=== PATIENT | female | born 1970 | race Caucasian/White ===

== ENCOUNTER 2024-03-01 05:15 | Emergency (ER) | payer OTHER, SELFPAY ==
[2024-03-01 05:58] LABS: Urine Albumin Negative (Neg - Trace); Urine Bilirubin Negative (Negative); Urine Character Clear (Clear); Urine Color Yellow; Urine Glucose Negative (Negative); Urine Ketone Negative (Negative); Urine Leukocyte Negative (Negative); Urine Nitrite Negative (Negative); Urine Occult Blood 1+ (Negative); Urine Urobilinogen Negative (Neg - 1+); Urine pH 6.5 (5.0-9.0)
[2024-03-01 06:08] LABS: Urine Squamous Cell 16-20 /LPF (Few)
[2024-03-01 06:10] VITALS: BP 123/82
[2024-03-01 06:10] LABS: Urine Bacteria Few (Negative); Urine White Cell 0-2 /HPF (0-5)
[2024-03-01 06:22] LABS: Amphetamines Negative (Negative); Barbiturates Negative (Negative); Benzodiazepines Negative (Negative); Buprenorphine Negative (Negative); Cocaine Negative (Negative); Marijuana Positive (Negative); Methadone Negative (Negative); Methamphetamines Negative (Negative); Opiates Negative (Negative); Phencyclidine Negative (Negative); Tricyclic Antidepressants Negative (Negative)
[2024-03-01 06:30] LABS: Fentanyl, Urine Negative (Negative)
[2024-03-01 06:50] LABS: ALT (SGPT) 22 U/L (0-35); AST (SGOT) 23 U/L (14-36); Albumin 4.8 g/dl (3.5-5.0); Alkaline Phosphatase 49 U/L (38-126); Blood Urea Nitrogen 20 mg/dl (7-17); Calcium 10.2 mg/dl (8.4-10.2); Carbon Dioxide 24 mmol/L (22-30); Chloride 103 mmol/L (98-107); Glucose 99 mg/dl (70-99); Potassium 2.8 mmol/L (3.5-5.1); Sodium 141 mmol/L (135-145); Total Bilirubin 0.4 mg/dl (0.2-1.3); eGFR > 60.00
[2024-03-01 06:53] LABS: % Basophils 0.6 % (0-2); % Immature Granulocytes 0.4 % (0-0.5); % Lymphocytes 17.8 % (20.5-51.1); % Monocytes 5.7 % (1.7-9.3); % Neutrophils 74.5 % (42.2-75.2); Absolute Basophils 0.1 10^3/uL (0-0.2); Absolute Eosinophils 0.1 10^3/uL (0-0.7); Absolute Lymphocytes 1.5 10^3/uL (1.2-3.4); Absolute Monocytes 0.5 10^3/uL (0.1-0.6); Absolute Neutrophils 6.2 10^3/uL (1.4-6.5); Hematocrit 39.7 % (37.0-47.0); Hemoglobin 14.6 g/dL (12.0-16.0); Mean Corp Hgb Conc. 36.8 g/dL (33.0-37.0); Mean Corpuscular Hgb 33.7 pg (27.0-31.0); Mean Corpuscular Volume 91.7 fL (81.0-99.0); Mean Platelet Volume 9.4 fL (7.4-10.4); Nucleated Red Blood Cells % 0 %; Platelet Count 320 10^3/uL (130-400); Red Blood Cell Count 4.33 10^6/uL (4.20-5.40); Red Cell Dist. Width 13.6 % (11.5-14.5); White Blood Cell Count 8.3 10^3/uL (4.8-10.8)
[2024-03-01 07:00] VITALS: BP 123/73
--- NOTE | 2024-03-01 07:18 | ED.GENMED ---
History of Present Illness
General
Chief Complaint: Anxiety
Source: patient and family
Time Seen by Provider: 03/01/24 06:57
History of Present Illness
History of Present Illness:
53yoF with a history of lupus, fibromyalgia, and migraines presenting via EMS for evaluation of anxiety. Patient reports being under a lot of stress recently due to work and family stressors. She was having trouble sleeping last night. Around 4am,
she started to feel palpitations like her heart was racing. She then stood up and became dizzy. She went upstairs to alert her who called EMS. Patient was hyperventilating on police and EMS arrival. She had 1 episode of vomiting on arrival.
Patient is currently feeling improved although continues to report severe anxiety. She reports a history of anxiety although has never been on any medications previously. She denies any suicidal ideations.
Past History
Past History
ED Past Medical History: Fibromyalgia and Other (Migraine headaches)
Social History
Tobacco: Non-smoker
Alcohol: Occasional
Drug: None
Personal:
Phy Exam
General Physical Exam
General Presentation: well appearing
General Skin: warm and dry
General Mental: alert and anxious
ENT Exam
ENT Exam: normocephalic
Cardiovascular Exam
Cardiovascular Exam: regular rate/rhythm and no murmur
Pulmonary Exam
Pulmonary Exam: lungs clear, no respiratory distress, no crackles and no wheezing
January Coma Scale
Eye Opening: Spontaneous
Verbal Response: Oriented
Motor Response: Obeys Commands
GCS Total Score: 15
Psychiatric Exam
Psychiatric Exam: anxious and other (Tearful)
Course
Orders/Labs/Results
Orders:
Orders
03/01/24 05:44
Fentanyl, Urine Urgent
Urinalysis Reflex To Culture Urgent
Date Specimen was Collected: 03/01/24
Time Specimen was Collected: 05:43
Urine Drug Abuse Screen Urgent
Date Specimen was Collected: 03/01/24
Time Specimen was Collected: 05:43
Urine Microscopic Reflex Cult Urgent
03/01/24 06:28
Complete Blood Count/With Diff Urgent
Comprehensive Metabolic Panel Urgent
Free T4 Urgent
Magnesium Urgent
Comment: ADD ON
Thyroid profile [TSH Reflex To Free T4] Urgent
03/01/24 06:58
Add On- LAB Urgent
Tests Added?: magnesium
Electrocardiogram (*1) Urgent
Reason for Study: Other
Other Reason for Exam: hypokalemia
EKG- Treatment ONCE
Potassium Chloride [KCl] 40 meq PO NOW STA
03/01/24 07:17
Crisis Consult Urgent
Reason for Consult: Eval, anxiety
0.9% Sodium Chloride 500 ml [Nss] 500 ml IV BOLUS
Lorazepam [Ativan] 1 mg IV NOW STA
Ondansetron Injectable [Zofran] 4 mg IV NOW STA
Potassium Chloride [KCl] 20 meq 0.9% Sodium Chloride 150 ml [Nss] 150 ml IV NOW
03/01/24 07:39
Troponin I Urgent
Abnormal Lab Results
03/01/24 03/01/24
05:44 06:28
MCH 33.7 H pg
(27.0-31.0)
Lymphocytes % 17.8 L %
(20.5-51.1)
Potassium 2.8 L mmol/L
(3.5-5.1)
BUN 20 H mg/dl
(7-17)
TSH (Reflex) 0.44 L uIU/ml
(0.47-4.68)
Ur Occult Blood Reflex 1+ A
(Negative)
Urine RBC 3-6 A /HPF
(0-2)
Urine Bacteria (Reflex) Few A
(Negative)
Ur Oxycodone Screen Positive H
(Negative)
U Marijuana (THC) Screen Positive H
(Negative)
03/01/24 06:28
03/01/24 06:28
Vital Signs
Initial and Last Documented VS:
Initial Vital Signs
Temp Pulse Resp Pulse Ox
97.9 F 103 28 98
03/01/24 05:22 03/01/24 05:22 03/01/24 05:22 03/01/24 05:22
Last Documented Vital Signs
Temp Pulse Resp BP Pulse Ox
98.9 F 103 23 136/83 95
03/01/24 05:22 03/01/24 10:00 03/01/24 09:45 03/01/24 09:22 03/01/24 10:00
MDM/Problems Addressed
Differential Diagnosis Includes:
53yoF here with anxiety. She started with palpitations this morning and felt like her heart was racing. EMS was called. She was hyperventilating prehospital. She reports being under a lot of stress recently. She is anxious and tearful on exam. VSS.
Exam otherwise reassuring. Differential diagnosis includes but is not limited to: Anxiety, thyroid dysfunction, electrolyte abnormality, arrhythmia, less likely ACS
Initial ED plan: CBC, CMP, TSH, and UA obtained by nursing staff prior to initial exam. Potassium 2.8. She reports having a GI bug earlier in the week and had 1 episode of vomiting today. TSH is mildly low at 0.44 and free T4 is normal. Troponin,
magnesium, and EKG ordered. Will consult crisis. IV Zofran, Ativan, and fluid bolus for symptoms. IV and PO potassium replacement ordered.
*EKG
Interpreted by ED Provider?: Yes
EKG Intrepretation Date: 03/01/24
Heart Rate: 90
Rate: normal
Rhythm: sinus
[place]: normal axis
Interval: normal interval
QRS Pattern: normal QRS
Ischemia: non-specific ST changes
*Critical Care Note
Total Time (30-74mins, 75-104mins- exclusive of procedures): Not Applicable
Update Note
Update Note:
Magnesium normal. EKG shows NSR with nonspecific ST changes. Troponin within normal limits. Crisis was consulted. Plan is for outpatient follow-up for her anxiety and resources were provided. Patient requesting medications for the next few days
to get her through until she is able to follow-up. She was given a prescription for 6 tablets of Ativan. Advised f/u with PCP and she was instructed to have repeat blood work in 1 week to monitor her potassium. ED return precautions discussed.
She expressed understanding is agreeable to plan. She was discharged in stable condition.
ED Attending Note
-
Portions of this chart may have been created with voice recognition software.� Occasional wrong word or��sound alike� substitutions may have occurred due to the inherent limitations of voice recognition software.
Discharge Plan
Departure
Patient Disposition: Home (Routine Discharge)
Date of Disposition: 03/01/24
Time of Disposition: 10:03
Patient with high blood pressure during this ER visit?: No
Discharge Problem:
Anxiety, Hypokalemia
Instructions: Anxiety, Adult (DC), High-potassium diet
Prescriptions:
New
lorazepam [Ativan] 1 mg tablet
1 mg PO TID PRN (Reason: anxiety) Qty: 6 0RF
No Action
sumatriptan succinate 100 MG tablet
100 mg PO PRN PRN (Reason: migraines)
zolpidem 10 MG tablet
10 mg PO HSPRN PRN (Reason: insomnia)
topiramate 50 MG tablet
50 mg PO DAILY
magnesium Tablet
PO
tizanidine
Thc Gummies
PO HS
Referrals:
UNKNOWN - PT DOES,NOT KNOW [Unknown Provider] -
Activity Restrictions/Additional Instructions:
Take Ativan only as needed for severe anxiety. Increase potassium in your diet.
Please call your family doctor tomorrow to schedule a follow-up appointment. You should have repeat blood work in 1 week to monitor your potassium levels.
Return to the ER with any worsening symptoms or suicidal thoughts.
Interventions
Interventions:
*Risk Screen - Suicide Last Done: 03/01/24 05:22
*General Assessment Last Done: 03/01/24 05:22
*Neglect/Abuse Screening Last Done: 03/01/24 05:22
ED- Fall Risk Assessment Last Done: 03/01/24 05:22
*ED COVID-19 Vaccine History Last Done: 03/01/24 05:22
*Nursing Disposition Last Done: 03/01/24 10:25
ED-Psychological Assessment Last Done: 03/01/24 06:30
Discharge Date and Time
Discharge Date/Time: 03/01/24 10:25
Print Language: DANISH
[2024-03-01 07:19] LABS: TSH Reflex To Free T4 0.44 uIU/ml (0.47-4.68)
[2024-03-01] MEDS: ZOFRAN 4 MG IV (07:41)
[2024-03-01] MEDS: NSS 500 IV (07:41)
[2024-03-01] MEDS: ATIVAN 1 MG IV (07:42)
[2024-03-01 07:44] LABS: Magnesium 2.1 mg/dl (1.6-2.3)
[2024-03-01 07:49] LABS: Free T4 1.22 ng/dl (0.78-2.19)
[2024-03-01] MEDS: KCL 40 MEQ PO (08:00)
[2024-03-01] MEDS: KCL 160 MEQ IV (08:14)
[2024-03-01 08:21] LABS: Troponin I < 0.012 ng/ml
[2024-03-01 09:22] VITALS: BP 136/83
== END 2024-03-01 10:25 | disposition home or self-care (01) ==
LOC: EMR 05:15
PROVIDERS: Emergency Medicine; Physician Assistant; EMERGENCY PHYSICIAN Emergency Medicine; FAMILY PHYSICIAN Family Medicine
DX: F41.9 Anxiety disorder, unspecified (principal); E87.6 Hypokalemia; M79.7 Fibromyalgia; Z63.8 Other specified problems related to primary support group
CPT/HCPCS: 99283; 96374; 96375; 96361; 80053; 80306; 80307; 81003; 81015; 83735; 84439; 84443; 84484; 85025; 93005

== ENCOUNTER 2024-07-27 06:44 | Emergency (ER) | payer OTHER, SELFPAY ==
[2024-07-27 06:47] VITALS: BP 130/90
[2024-07-27] MEDS: ZOFRAN 4 MG IV (07:31)
[2024-07-27] MEDS: TORADOL 15 MG IV (07:31)
[2024-07-27] MEDS: NSS 500 IV (07:32)
[2024-07-27 07:44] LABS: Urine Albumin Negative (Neg - Trace); Urine Bilirubin Negative (Negative); Urine Character Clear (Clear); Urine Color Yellow; Urine Glucose Negative (Negative); Urine Ketone Negative (Negative); Urine Leukocyte Negative (Negative); Urine Nitrite Negative (Negative); Urine Occult Blood 1+ (Negative); Urine Urobilinogen Negative (Neg - 1+); Urine pH 6.5 (5.0-9.0)
[2024-07-27 07:50] LABS: Hematocrit 41.9 % (37.0-47.0); Hemoglobin 14.4 g/dL (12.0-16.0); Mean Corp Hgb Conc. 34.4 g/dL (33.0-37.0); Mean Corpuscular Hgb 32.6 pg (27.0-31.0); Mean Corpuscular Volume 94.8 fL (81.0-99.0); Mean Platelet Volume 8.8 fL (7.4-10.4); Platelet Count 315 10^3/uL (130-400); Red Blood Cell Count 4.42 10^6/uL (4.20-5.40); Red Cell Dist. Width 14.1 % (11.5-14.5); White Blood Cell Count 4.4 10^3/uL (4.8-10.8)
[2024-07-27 07:54] LABS: HCG, Serum Qualitative Screen Negative; Urine Bacteria Few (Negative); Urine Squamous Cell >30 /LPF (Few); Urine White Cell 0-2 /HPF (0-5)
[2024-07-27 07:56] LABS: Blood Urea Nitrogen 24 mg/dl (7-17); Calcium 9.9 mg/dl (8.4-10.2); Carbon Dioxide 34 mmol/L (22-30); Chloride 102 mmol/L (98-107); Glucose 81 mg/dl (70-99); Potassium 4.1 mmol/L (3.5-5.1); Sodium 141 mmol/L (135-145); eGFR > 60.00
[2024-07-27] MEDS: DILAUDID 0.5 MG IV (07:58)
--- NOTE | 2024-07-27 08:14 | ED.GENMED ---
History of Present Illness
General
Chief Complaint: Flank Pain
Source: patient
Exam Limitations: none
Time Seen by Provider: 07/27/24 07:22
Nursing documentation reviewed up to this point in time: agreed with
History of Present Illness
History of Present Illness:
Patient presents to ED secondary to worsening right flank pain along with dysuria and nausea sensation over the past 5 days. Denies fever or chills. Denies inability to urinate. Denies vomiting. Denies trauma. Patient states that her symptoms
are similar to previous episodes secondary to kidney stones, with last episode approximately 10 years ago.
Past History
Past History
ED Past Medical History: Fibromyalgia and Other (Migraine headaches)
Social History
Tobacco: Non-smoker
Alcohol: Occasional
Drug: None
Personal:
Review of Systems
Review of Systems
Allergies reviewed?: Yes
All Other Systems: ROS reviewed and negative except as documented in HPI and ROS
Constitutional: Reports no symptoms; Denies fever
ABD/GI: Reports nausea; Denies vomiting
: Reports dysuria and flank pain
Musculoskeletal: Reports no symptoms
Skin: Reports no symptoms
Neurological: Reports no symptoms
Phy Exam
Physical Exam
Physical Exam:
Physical Exam
General: mild painful distress, not acutely ill. afebrile
Head: nc/at. eomi
Neck: supple. normal range of motion.
Abdomen: normal bowel sounds. not tender.
Neuro: alert and oriented x 3. no focal neurological deficits
Skin: no rash
Psychiatric: well kept. interactive and cooperative
Extremities: no edema. no calf tenderness.
Course
Orders/Labs/Results
Orders:
Orders
07/27/24 07:27
CT Abd/pel Without Iv Or Oral Urgent
Comment:
Reason For Exam: right flank pain w hx kidney stone
Ketorolac [Toradol] 15 mg IV NOW STA
Ondansetron Injectable [Zofran] 4 mg IV NOW STA
Test Result ONCE
07/27/24 07:28
0.9% Sodium Chloride 500 ml [Nss] 500 ml IV BOLUS
07/27/24 07:36
Basic Metabolic Panel Urgent
Complete Blood Count/No Diff Urgent
HCG, Serum Qualitative Screen Urgent
Urinalysis Reflex To Culture Urgent
Date Specimen was Collected: 07/27/24
Time Specimen was Collected: 07:29
Urine Microscopic Reflex Cult Urgent
Urine Culture Urgent
SUSAN Source: U
Specimen Description:
Date Specimen was Collected: 07/27/24
Time Specimen was Collected: :29
07/27/24 07:49
HYDROmorphone [Dilaudid] 0.5 mg IV NOW STA
07/27/24 08:52
Morphine Sulfate 4 mg IV NOW STA
07/27/24 10:29
Morphine Sulfate 4 mg .ROUTE .STK-MED ONE
07/27/24 10:30
Morphine Sulfate 4 mg IV NOW STA
07/27/24 11:24
CefTRIAXone [Rocephin] 1,000 mg IV NOW STA
07/27/24 12:39
Add On - Microbiology Urgent
Tests Added?: urine culture
Abnormal Lab Results
07/27/24
07:36
WBC 4.4 L 10^3/uL
(4.8-10.8)
MCH 32.6 H pg
(27.0-31.0)
Carbon Dioxide 34 H mmol/L
(22-30)
BUN 24 H mg/dl
(7-17)
Ur Occult Blood Reflex 1+ A
(Negative)
Urine RBC 3-6 A /HPF
(0-2)
Urine Bacteria (Reflex) Few A
(Negative)
07/27/24 07:36
07/27/24 07:36
Vital Signs
Initial and Last Documented VS:
Initial Vital Signs
Temp Pulse Resp BP Pulse Ox
98.2 F 82 24 130/90 98
07/27/24 06:47 07/27/24 06:47 07/27/24 06:47 07/27/24 06:47 07/27/24 06:47
Last Documented Vital Signs
Temp Pulse Resp BP Pulse Ox
97.8 F 66 18 144/82 97
07/27/24 11:33 07/27/24 11:33 07/27/24 11:33 07/27/24 11:33 07/27/24 11:33
MDM/Problems Addressed
MDM/Problems Addressed:
CT report reviewed and discussed with patient. In addition, CT abdomen pelvis reviewed by on-call urology, , who does not feel that symptoms are related to any of the stone. Potential spasm from recently passed stone versus inflammatory
response, i.e. UTI, as potential cause for her symptoms to discuss. As such, decision made to discharge patient home with empiric antibiotics along with pain medication. Advised PCP follow-up as an outpatient, or consider urology follow-up, if her
pain persists. Advised to return to ED with worsening symptoms, i.e. fever/worsening pain/inability to urinate. Patient expressed understand at time of discharge, to the care of her spouse. Patient is otherwise afebrile, helically stable, and
nontoxic-appearing, at time of discharge.
*Critical Care Note
Total Time (30-74mins, 75-104mins- exclusive of procedures): Not Applicable
ED Attending Note
-
Portions of this chart may have been created with voice recognition software.� Occasional wrong word or��sound alike� substitutions may have occurred due to the inherent limitations of voice recognition software.
Discharge Plan
Departure
Patient Disposition: Home (Routine Discharge)
Date of Disposition: 07/27/24
Time of Disposition: 11:26
Patient with high blood pressure during this ER visit?: Yes
Condition: Good
Discharge Problem:
Flank pain
Instructions: Flank Pain (DC)
Prescriptions:
New
cefdinir 300 mg capsule
300 mg PO BID Qty: 12 0RF
ketorolac 10 mg tablet
10 mg PO Q8H PRN (Reason: Pain) Qty: 14 0RF
Rx Instructions:
maximum total duration of 5 days from all oral, intranasal, or parenteral formulations
ondansetron 4 mg Tablet,Disintegrating
4 mg PO TIDPRN PRN (Reason: nausea/vomiting) Qty: 12 0RF
No Action
sumatriptan succinate 100 MG tablet
100 mg PO PRN PRN (Reason: migraines)
zolpidem 10 MG tablet
10 mg PO HSPRN PRN (Reason: insomnia)
topiramate 50 MG tablet
50 mg PO DAILY
magnesium Tablet
PO
tizanidine
Thc Gummies
PO HS
lorazepam [Ativan] 1 mg tablet
1 mg PO TID PRN (Reason: anxiety) Qty: 6 0RF
Referrals:
Charles Perez MD [Active] -
Evangelist Brown MD [Family Provider] -
Activity Restrictions/Additional Instructions:
As discussed, please follow-up with your primary care physician and/or referred urologist for reevaluation. Please consider return to ED with worsening symptoms, i.e. fever/worsening pain/inability urinate. Your prescriptions have been sent
electronically to [facility] pharmacy in [facility].
Interventions
Interventions:
*Risk Screen - Suicide Last Done: 07/27/24 07:49
*General Assessment Last Done: 07/27/24 07:42
*Neglect/Abuse Screening Last Done: 07/27/24 07:49
*ED- Fall Risk Assessment Last Done: 07/27/24 07:42
*ED COVID-19 Vaccine History Last Done: 07/27/24 07:50
*Nursing Disposition Last Done: 07/27/24 11:33
[facility] Assessment Last Done: 07/27/24 07:42
ED-Female Genitourinary Assessment Last Done: 07/27/24 07:42
Discharge Date and Time
Discharge Date/Time: 07/27/24 11:38
Print Language: [id number]
[2024-07-27] MEDS: MORPHINE SULFATE 4 MG IV ×2 (08:56→10:30)
[2024-07-27 08:59] VITALS: BP 152/81
[2024-07-27 10:32] VITALS: BP 137/90
[2024-07-27 11:27] VITALS: BMI 20.9
[2024-07-27] MEDS: ROCEPHIN 1000 MG IV (11:28)
[2024-07-27 11:33] VITALS: BP 144/82
== END 2024-07-27 11:38 | disposition home or self-care (01) ==
LOC: EMR 06:44
PROVIDERS: EMERGENCY PHYSICIAN Emergency Medicine; FAMILY PHYSICIAN Family Medicine
DX: R10.9 Unspecified abdominal pain (principal); R30.0 Dysuria; R11.0 Nausea; R03.0 Elevated blood-pressure reading, without diagnosis of hypertension; M79.7 Fibromyalgia; G43.909 Migraine, unspecified, not intractable, without status migrainosus; K58.9 Irritable bowel syndrome, unspecified; M32.9 Systemic lupus erythematosus, unspecified; F41.9 Anxiety disorder, unspecified; Z87.442 Personal history of urinary calculi; Z88.8 Allergy status to other drugs, medicaments and biological substances; Z91.018 Allergy to other foods; Z91.013 Allergy to seafood; Z90.49 Acquired absence of other specified parts of digestive tract
CPT/HCPCS: 99284; 96374; 96375 ×4; 96376; 74176; 80048; 81003; 81015; 84703; 85027; 87077; 87086